=== PATIENT | male | born 1970 | race Two or more races ===

== ENCOUNTER 2024-03-22 22:13 | Emergency (ER) | payer MEDICAID, OTHER ==
[~2024-03-22] VITALS: Ht 172.7 cm; Wt 74.8 kg
[2024-03-22 22:44] VITALS: BP 151/99; TEMP 98.5; O2SAT 98
[2024-03-22] MEDS: ACETAMINOPHEN ES 500 MG TABLET PO ONE (23:34)
== END 2024-03-22 23:36 | disposition left against medical advice (07) ==
LOC: ER 22:17
DX: R51.9 Headache, unspecified (principal)